=== PATIENT | female | born 1955 | race Caucasian/White ===

== ENCOUNTER → 2016-08-16 | Outpatient (CLI) | payer OTHER ==
--- NOTE | 2016-08-16 18:27 | REP ---
CHEST, TWO VIEWS: REASON: Sarcoidosis. There is no adenopathy. The lung volumes are low accentuating the interstitial marking. There is no jeffrey evidence of interstitial edema or interstitial fibrosis. The heart is not enlarged. There are no abnormal patchy opacities. Chronic changes seen in the imaged spine most consistent with age related changes. IMPRESSION: No acute cardiopulmonary disease. Finding as described above. Signed by Dav Walker DO 08/16/2016 07:20 P
== END ==
LOC: M SMT 09:25
PROVIDERS: ATTEND Internal Medicine Pulmonary Disease
DX: D86.9 Sarcoidosis, unspecified (principal)

== ENCOUNTER → 2020-11-02 | Outpatient (REF) | payer MEDICARE, OTHER | LOC: M LAB REF 17:42 | PROVIDERS: ATTEND Nurse Practitioner Family | DX: E83.42 Hypomagnesemia (principal) ==